=== PATIENT | female | born 1990 | race Two or more races ===

== ENCOUNTER 2025-08-13 23:51 | Emergency (ER) | payer MEDICAID, OTHER ==
[~2025-08-13] VITALS: Ht 157.5 cm; Wt 90.6 kg
[2025-08-13 23:53] VITALS: BP 144/99; PULSE 85; RESP 19; TEMP 97.9; O2SAT 99
== END 2025-08-14 01:42 | disposition left against medical advice (07) ==
LOC: ER 23:51
DX: R10.31 Right lower quadrant pain (principal); Z79.899 Other long term (current) drug therapy